=== PATIENT | female | born 1970 | race Caucasian/White ===

== ENCOUNTER 2019-01-09 16:21 | Emergency (ER) | payer MEDICAID ==
[~2019-01-09] VITALS: Ht 165.1 cm; Wt 101.2 kg
[2019-01-09 16:52] VITALS: Ht 165.1 cm; Wt 101.2 kg
[2019-01-09] MEDS ORDERED: AZITHROMYCIN 500MG/NS (PMX) 250 ML IV STA (17:02)
[2019-01-09] MEDS ORDERED: ACETAMINOPHEN 325 MG TAB PO STA (17:02)
[2019-01-09] MEDS ORDERED: CEFTRIAXONE 1 GM/50 ML (PMX) 50 ML IVPB STA (17:02)
[2019-01-09] MEDS ORDERED: SODIUM CHLORIDE 0.9% 1L BAG IV* STA (17:02)
--- NOTE | 2019-01-09 17:47 | ERD ---
ER Documentation Chief Complaint Chief Complaint fever, cough, congestion, sore throat x3d. HPI 48-year-old female with no significant past medical history presenting with complaints of fever, cough, and generalized body aches. She states that she has been sick for over 1 week. However her fever started 2 days ago associated with worsening cough and overall symptoms. She is complaining of associated shortness of breath but denies any chest pain, abdominal pain, or diarrhea. She does complain of headache with 2 episodes of nonbloody and nonbilious vomiting today. She has been recently taking amoxicillin for the past 3 days that she got from a friend. However it seems like her symptoms have not been improving. She does complain of mild dysuria and bilateral flank pain. She has been taking NyQuil and DayQuil at home with mild relief. ROS All systems reviewed and are negative except as per history of present illness. Medications Home Meds Active Scripts Ibuprofen* (Motrin*) 600 Mg Tab, 600 MG PO Q6H PRN for PAIN AND OR ELEVATED TEMP, #30 TAB Prov:ROBERT SANTANA MD 01/09/19 Levofloxacin* (Levaquin*) 750 Mg Tablet, 750 MG PO DAILY for 5 Days, TAB Prov:ROBERT SANTANA MD 01/09/19 Reported Medications Diclofenac Sodium* (Diclofenac Sodium*) 75 Mg Tablet.dr, 75 MG PO BID, #60 TAB 01/09/19 Hydrocodone/Acetaminophen ([place] 5-325 Tablet) 1 Each Tablet, 1 EACH PO Q6 PRN for SEVERE PAIN LEVEL 7-10, TAB 01/09/19 Allergies Allergies: Coded Allergies: No Known Allergy (Unverified , 01/09/19) PMhx/Soc History of Surgery: Yes (RT KNEE) Anesthesia Reaction: No Hx Neurological Disorder: No Hx Respiratory Disorders: No Hx Cardiac Disorders: No Hx Psychiatric Problems: No Hx Miscellaneous Medical Probl: Yes (CHRONIC BACK PAIN , RT SHOULDER PAIN ) Hx Alcohol Use: No Hx Substance Use: No Hx Tobacco Use: No Smoking Status: Never smoker FmHx Family History: diabetes Physical Exam Vitals Vital Signs Date Temp Pulse Resp B/P (MAP) Pulse Ox O2 O2 Flow FiO2 Time Delivery Rate 01/09/19 98.0 100 16 128/75 99 Room Air 20:25 (92) 01/09/19 98.0 102 19 138/75 98 Room Air 20:04 (96) 01/09/19 100.1 114 15 141/63 97 Room Air 18:38 (89) 01/09/19 121 18 134/74 96 Room Air 18:00 (94) 01/09/19 123 18 136/79 98 Room Air 17:30 (98) 01/09/19 103.8 133 22 155/78 98 16:52 (103) Physical Exam Const: Ill-appearing but nontoxic Head: Atraumatic Eyes: Normal Conjunctiva ENT: Dry mucous membranes, posterior oropharynx normal without exudate or erythema. Neck: Full range of motion. No meningismus. Resp: Clear to auscultation bilaterally Cardio: Tachycardic with regular rhythm, no murmurs. 2+ distal pulses Abd: Soft, non tender, non distended. Normal bowel sounds Skin: No petechiae or rashes Back: Diffuse muscular tenderness. No midline or flank tenderness Ext: No cyanosis, or edema Neur: Awake and alert, mentating normally, normal speech, cranial nerves intact, strength and sensations intact in all 4 extremities. Psych: Normal Mood and Affect Result Diagram: 01/09/19 1716 01/09/19 1716 Results 24 hrs Laboratory Tests Test 01/09/19 17:09 01/09/19 17:10 01/09/19 17:16 01/09/19 19:38 POC Venous Lactate 1.7 mmol/L 1.0 mmol/L POC Beta HCG, NEGATIVE Qualitative White Blood Count 13.3 10^3/ul Red Blood Count 4.19 10^6/ul Hemoglobin 10.9 g/dl Hematocrit 33.2 % Mean Corpuscular 79.2 fl Volume Mean Corpuscular 26.0 pg Hemoglobin Mean Corpuscular 32.8 g/dl Hemoglobin Concent Red Cell 13.5 % Distribution Width Platelet Count 295 10^3/UL Mean Platelet 9.9 fl Volume Immature 0.600 % Granulocytes % Neutrophils % % Segmented 73 % Neutrophils % (Manual) Band Neutrophils % 15 % (Manual) Lymphocytes % % Lymphocytes % 7 % (Manual) Reactive 1 % Lymphocytes % (Manual) Monocytes % % Monocytes % 4 % (Manual) Eosinophils % % Basophils % % Nucleated Red 0.0 /100WBC Blood Cells % Immature 0.080 10^3/ul Granulocytes # Neutrophils # 10^3/ul Neutrophils # 10.0 10^3/ul (Manual) Band Neutrophils # 1.9 10^3/ul Lymphocytes 0.9 10^3/ul (Manual) Lymphocytes # 10^3/ul Reactive 0.1 10^3/ul Lymphocytes # Monocytes # 10^3/ul Monocytes # 0.5 10^3/ul (Manual) Eosinophils # 10^3/ul Basophils # 10^3/ul Nucleated Red 10^3/ul Blood Cells # Platelet Estimate NORMAL Giant Platelets 1 % Polychromasia 1+ Anisocytosis 2+ Microcytosis 2+ Urine Color YELLOW Urine Clarity SLIGHTLY CLOUDY Urine pH 5.0 Urine Specific 1.017 [place] Urine Ketones NEGATIVE mg/dL Urine Nitrite NEGATIVE mg/dL Urine Bilirubin NEGATIVE mg/dL Urine Urobilinogen 1+ mg/dL Urine Leukocyte 1+ Kathleen/ul Esterase Urine Microscopic 10 /HPF RBC Urine Microscopic 67 /HPF WBC Urine Squamous FEW /HPF Epithelial Cells Urine Bacteria FEW /HPF Urine Mucus MODERATE /HPF Urine Hemoglobin 1+ mg/dL Urine Glucose NEGATIVE mg/dL Urine Total 2+ mg/dl Protein Sodium Level 139 mmol/L Potassium Level 3.3 mmol/L Chloride Level 101 mmol/L Carbon Dioxide 26 mmol/L Level Anion Gap 12 Blood Urea 9 mg/dl Nitrogen Creatinine 0.87 mg/dl Est Glomerular > 60 mL/min Filtrat Rate mL/min Glucose Level 119 mg/dl Calcium Level 9.1 mg/dl Total Bilirubin 0.1 mg/dl Direct Bilirubin 0.00 mg/dl Indirect Bilirubin 0.1 mg/dl Aspartate Amino 30 IU/L Transf (AST/SGOT) Alanine 31 IU/L Aminotransferase ( ALT/SGPT) Alkaline 182 IU/L Phosphatase Total Protein 7.8 g/dl Albumin 3.8 g/dl Globulin 4.00 g/dl Albumin/Globulin 0.95 Ratio Current Medications Medications Dose Sig/Michelle Start Time Status Last (Trade) Ordered Route PRN Stop Time Admin Dose Reason Admin 650 mg ONCE STAT 01/09/19 DC 01/09/19 Acetaminophen PO 17:02 17:26 (Tylenol 01/09/19 17:04 Tab) Sodium 1,710 ml BOLUS OVER 2 01/09/19 DC 01/09/19 Chloride HOURS STAT 17:02 17:18 (NS) IV* 01/09/19 17:04 Ceftriaxone 50 ml @ ONCE STAT 01/09/19 DC 01/09/19 Sodium 100 mls/hr IVPB 17:02 17:26 01/09/19 17:31 Azithromycin 250 ml @ ONCE STAT 01/09/19 DC 01/09/19 250 mls/hr IV 17:02 17:57 01/09/19 18:01 Procedures/MDM EMERGENT LABS AND DIAGNOSTIC STUDIES: Lab Results above were reviewed and interpreted by me. CBC: Leukocytosis concerning for acute infection. Mild anemia. CMP: Borderline hypokalemia.. No evidence of severe electrolyte abnormality, renal failure, hypoglycemia, liver failure, or biliary obstruction Lactate within normal limits without evidence of sepsis or tissue hypoperfusion UA: Signs of possible infection Influenza negative 12-lead EKG was interpreted by Gayle Santana MD: Sinus tachycardia at 127 bpm Normal axis Normal intervals No acute ST or T wave changes suggestive of acute ischemia or STEMI. Radiology Results as interpreted by Radiology below were reviewed by Phillip Santana MD: Chest x-ray shows no acute abnormalities Initial Nursing notes reviewed. Previous Medical Records requested via the Electronic Health Record. EMERGENCY DEPARTMENT COURSE / MEDICAL DECISION MAKING: Patient presented with fever, tachycardia, and respiratory symptoms, concerning for possible sepsis. Sepsis workup was initiated, IV fluids & IV antibiotics were given. She was treated with antipyretics for her fever. Her lactate was within normal limits, without evidence of severe sepsis or septic shock. I was unable to find any clear source of infection other than possible UTI. Given her respiratory symptoms have been worsening in addition to fever, I cannot rule out a bacterial lower respiratory tract infection. Her chest x-ray however does not show pneumonia. Low suspicion for meningitis. Patient was monitored for several hours in the ED with significant improvement of her symptoms and her tachycardia. Upon reevaluation, she does appear well and stable for discharge. I will send her home with a prescription for Motrin as well as Levaquin for her possible UTI and her lower respiratory infection. Return precautions were discussed. Critical Care Time: 45 minutes Treatments/Evaluations: Close monitoring and treatment of unstable vital signs, cardiorespiratory, and neurologic status, while maintaining tight balance of fluid, respiratory, and cardiac interventions. This time includes discussing the case with the patient and the patients family. This time does not include all procedures stated elsewhere in this record. This time also includes reviewing old records, labs and radiological studies. This time includes examining and re- examining the patient. Additionally, this time also includes arranging care with admitting and consulting physicians. Departure Diagnosis: Primary Impression: Sepsis Sepsis type: sepsis due to unspecified organism Qualified Codes: A41.9 - Sepsis, unspecified organism Additional Impressions: Sinus tachycardia Acute febrile illness UTI (urinary tract infection) Urinary tract infection type: site unspecified Hematuria presence: without hematuria Qualified Codes: N39.0 - Urinary tract infection, site not specified Condition: Stable EKMEROBERT CARRILLO MD Jan 09, 2019 17:47
[2019-01-09] MEDS ORDERED: HYDR-4011 PO (19:37)
[2019-01-09] MEDS ORDERED: DICL75TA2 PO (19:37)
[2019-01-09] MEDS ORDERED: LEVO750T25 PO (20:08)
[2019-01-09] MEDS ORDERED: IBUP-1542 PO (20:09)
[2019-01-09 20:25] VITALS: BP 128/75; PULSE 100; RESP 16
== END 2019-01-09 20:35 | disposition home or self-care (01) ==
LOC: E/R 16:21
DX: A41.9 Sepsis, unspecified organism (principal); R00.0 Tachycardia, unspecified; N39.0 Urinary tract infection, site not specified
CPT/HCPCS: 36415; 71045; 80053; 81001; 81025; 83605; 85025; 87040; 87086; 87400; 96374; 96375; J0456; J0696; J7030; Z7502; Z7610; 93005